=== PATIENT | female | born 1970 | race Caucasian/White ===

== ENCOUNTER 2017-05-09 12:17 | Emergency (ER) | payer BC ==
[~2017-05-09] VITALS: Ht 160 cm; Wt 82.5 kg
[2017-05-09 13:21] LABS: BASOPHIL COUNT 0.1 K/uL (0-0.1); EOSINOPHIL (%) 1.4 % (0-5); EOSINOPHIL COUNT 0.1 K/uL (0-0.3); HEMATOCRIT 41.8 % (36.0-46.0); IMMATURE GRANULOCYTE (%) 0.5 % (0.0-0.7); LYMPHOCYTE COUNT 1.6 K/uL (1.0-2.8); MCH 30.9 PG (29.0-34.0); MCV 90.9 FL (83-99); MEAN PLAT.VOLUME 10.6 uM^3 (9.5-12.4); MONOCYTE (%) 6.6 % (3-12); MONOCYTE COUNT 0.6 K/uL (0-0.8); NEUTROPHIL (%) 71.4 % (45-76); PLATELET COUNT 288 K/uL (156-360); RBC DIS.WIDTH-CV 12.3 % (11.8-14.6); RBC DIS.WIDTH-SD 40.2 % (39-53); WHITE BLOOD COUNT 8.4 K/uL (4.1-10.2)
[2017-05-09 13:35] LABS: CHLORIDE 104 mEq/L (99-109); POTASSIUM 3.9 mEq/L (3.7-5.4); SODIUM 139 mEq/L (136-147)
[2017-05-09 13:37] LABS: GLUCOSE 86 mg/dL (70-99)
[2017-05-09 13:38] LABS: ANION GAP 9 MEQ/L (2-14)
[2017-05-09 13:39] LABS: TOTAL BILIRUBIN 0.6 mg/dL (0.0-1.0)
[2017-05-09 13:41] LABS: ALKALINE PHOSPHATASE 103 IU/L (3-129); GFR ESTIMATE (CALCULATED) > 59 mL/min/
[2017-05-09 13:42] LABS: UREA NITROGEN (BUN) 11 mg/dL (9-23)
[2017-05-09 13:45] LABS: TROP-I INTERPRETATION NEGATIVE; TROPONIN-I < 0.01 ng/mL (0.0-0.30)
[2017-05-09 13:53] LABS: QUANTITATIVE HCG < 4.0 MIU/ML
[2017-05-09] MEDS ORDERED: CLONIDINE HCL0.1 MG PO (17:23)
[2017-05-09 18:23] VITALS: BP 150/103
== END 2017-05-09 18:25 | disposition left against medical advice (07) ==
LOC: EME 12:17
PROVIDERS: Emergency Medicine
DX: I16.0 Hypertensive urgency (principal); R00.2 Palpitations; R20.2 Paresthesia of skin
CPT/HCPCS: 70450; 71020; 80053; 84484; 84702; 85025; 93005; 99281; 99285